=== PATIENT | male | born 1975 | race Caucasian/White ===

== ENCOUNTER 2020-05-08 12:17 | Emergency (ER) | payer OTHER ==
[~2020-05-08 12:17] MED LIST: DAYPRO600 M1 PO; NORFLEX100 MG PO; Vicodin 5/500 505 MG PO
[2020-05-08 13:06] VITALS: BP 112/70
[2020-05-08] MEDS ORDERED: NORCO 5-325 TA1 EACH PO (13:45)
[2020-05-08] MEDS ORDERED: IBUPROFEN600 MG PO (13:45)
== END 2020-05-08 14:10 | disposition home or self-care (01) ==
LOC: ED 12:17
DX: T22.10XA Burn of first degree of shoulder and upper limb, except wrist and hand, unspecified site, initial encounter (principal); X08.8XXA Exposure to other specified smoke, fire and flames, initial encounter; Y93.89 Activity, other specified; Y92.89 Other specified places as the place of occurrence of the external cause; Y99.8 Other external cause status

== ENCOUNTER 2020-09-29 13:47 | Emergency (ER) | payer OTHER ==
[~2020-09-29] VITALS: Ht 187.9 cm; Wt 115.7 kg
[~2020-09-29 13:47] MED LIST changes: +IBUPROFEN600 MG PO; +NORCO 5-325 TA1 EACH PO
[2020-09-29 16:28] VITALS: BP 103/70
[2020-09-29] MEDS ORDERED: PERCOCET 5-3251 EACH PO (17:25)
== END 2020-09-29 17:45 | disposition home or self-care (01) ==
LOC: ED 13:47
DX: S22.31XA Fracture of one rib, right side, initial encounter for closed fracture (principal); M79.601 Pain in right arm; Z88.6 Allergy status to analgesic agent; W20.8XXA Other cause of strike by thrown, projected or falling object, initial encounter; Y93.89 Activity, other specified; Y92.89 Other specified places as the place of occurrence of the external cause; Y99.8 Other external cause status

== ENCOUNTER → 2020-11-25 | Outpatient (CLI) | payer OTHER, BC ==
[~2020-11-25] MED LIST changes: +PERCOCET 5-3251 EACH PO
== END | disposition home or self-care (01) ==
LOC: RAD 11:18
PROVIDERS: ATTEND Family Medicine
DX: S22.41XD Multiple fractures of ribs, right side, subsequent encounter for fracture with routine healing (principal); X58.XXXD Exposure to other specified factors, subsequent encounter

== ENCOUNTER → 2021-04-29 | Day surgery (SDC) | payer BC ==
[2021-04-26 13:47] LABS: BUN 16 mg/dl (7-24); CHLORIDE 108 mmol/L (98-107); CREATININE 1.03 mg/dL (0.70-1.30); POTASSIUM 3.6 mmol/L (3.5-5.1); SODIUM 139 mmol/L (136-145)
[~2021-04-29] VITALS: Ht 185.4 cm; Wt 113.4 kg
[2021-04-29 07:00] VITALS: BP 110/74
[2021-04-29 08:12] VITALS: BP 111/78
[2021-04-29 08:27] VITALS: BP 108/73
[2021-04-29 08:37] VITALS: BP 110/83
[2021-04-29 10:02] VITALS: BP 110/63
== END | disposition home or self-care (01) ==
LOC: SDC 04-26 11:00
PROVIDERS: ATTEND Orthopaedic Surgery
DX: G56.01 Carpal tunnel syndrome, right upper limb (principal); F41.9 Anxiety disorder, unspecified; E78.00 Pure hypercholesterolemia, unspecified; F32.9 Major depressive disorder, single episode, unspecified; Z87.891 Personal history of nicotine dependence; J45.909 Unspecified asthma, uncomplicated; Z20.822 Contact with and (suspected) exposure to COVID-19; Z79.899 Other long term (current) drug therapy

== ENCOUNTER 2021-11-09 12:05 | Emergency (ER) | payer OTHER ==
[~2021-11-09] VITALS: Wt 120.2 kg
[2021-11-09 12:31] VITALS: BP 112/75
== END 2021-11-09 15:04 | disposition home or self-care (01) ==
LOC: ED 12:05
DX: S06.0X0A Concussion without loss of consciousness, initial encounter (principal); Z88.8 Allergy status to other drugs, medicaments and biological substances; W22.8XXA Striking against or struck by other objects, initial encounter; Y93.89 Activity, other specified; Y92.89 Other specified places as the place of occurrence of the external cause; Y99.8 Other external cause status

== ENCOUNTER 2022-12-16 19:40 | Emergency (ER) | payer OTHER ==
[~2022-12-16] VITALS: Ht 185.4 cm; Wt 124.7 kg
[2022-12-16] MEDS ORDERED: CELEXA20 MG PO (19:50)
[2022-12-16 20:15] LABS: BASO % 0.3 % (0.0-1.0); EOS # 0.1 10*3/uL (0.0-0.4); EOS % 0.8 % (1.0-4.0); HEMATOCRIT 42.7 % (42.0-52.0); LYMPH # 2.3 10*3/uL (1.3-4.4); LYMPH % 35.1 % (27.0-41.0); MEAN CELL VOLUME 87.3 fl (80.0-94.0); MEAN CORPUSCULAR HGB 29.9 pg (27.0-31.0); MEAN CORPUSCULAR HGB CONC 34.2 g/dl (33.0-37.0); MEAN PLATELET VOLUME 8.5 fl (9.6-12.3); MONO # 0.8 10*3/uL (0.1-1.0); MONO % 11.6 % (3.0-9.0); NEUT # 3.4 10*3/uL (2.3-7.9); PLATELET COUNT AUTOMATED 274 10*3/uL (130-400); RED BLOOD COUNT 4.89 10*6/uL (4.50-5.90); RED CELL DISTRI WIDTH 12.7 % (0-14.5); WHITE BLOOD COUNT 6.5 10*3/uL (4.8-10.8)
[2022-12-16 20:32] LABS: ALKALINE PHOSPHATASE 73 U/L (46-116); BUN 12 mg/dl (9-23); CHLORIDE 105 mmol/L (98-107); LIPASE 31 U/L (12-53); POTASSIUM 3.4 mmol/L (3.4-5.1); SGPT/ALT 59 U/L (10-49)
[2022-12-16 23:19] VITALS: BP 142/86
[2022-12-17] MEDS ORDERED: DICYCLOMINE HYD20 MG PO (01:23)
== END 2022-12-17 01:37 | disposition home or self-care (01) ==
LOC: ED 19:40
PROVIDERS: Physician Assistant
DX: K52.9 Noninfective gastroenteritis and colitis, unspecified (principal); R11.2 Nausea with vomiting, unspecified; J45.909 Unspecified asthma, uncomplicated; F32.A Depression, unspecified; Z88.8 Allergy status to other drugs, medicaments and biological substances; Z98.890 Other specified postprocedural states

== ENCOUNTER 2023-04-09 13:58 | Emergency (ER) | payer OTHER ==
[~2023-04-09] VITALS: Ht 182.8 cm; Wt 108.9 kg
[~2023-04-09 13:58] MED LIST changes: +CELEXA20 MG PO; +DICYCLOMINE HYD20 MG PO
[2023-04-09 14:13] VITALS: BP 117/90
[2023-04-09] MEDS ORDERED: CEPHALEXIN500 M1 PO (14:23)
== END 2023-04-09 16:00 | disposition home or self-care (01) ==
LOC: ED 13:58
DX: S81.811A Laceration without foreign body, right lower leg, initial encounter (principal); J45.909 Unspecified asthma, uncomplicated; F32.A Depression, unspecified; Z88.8 Allergy status to other drugs, medicaments and biological substances; Z98.890 Other specified postprocedural states; W26.9XXA Contact with unspecified sharp object(s), initial encounter; Y93.89 Activity, other specified; Y92.89 Other specified places as the place of occurrence of the external cause; Y99.8 Other external cause status

== ENCOUNTER → 2023-07-11 | Outpatient (CLI) | payer OTHER ==
[~2023-07-11] MED LIST changes: +CEPHALEXIN500 M1 PO
== END | disposition home or self-care (01) ==
LOC: RAD 15:18
PROVIDERS: ATTEND Family Medicine
DX: S46.911A Strain of unspecified muscle, fascia and tendon at shoulder and upper arm level, right arm, initial encounter (principal); X58.XXXA Exposure to other specified factors, initial encounter; Y93.89 Activity, other specified; Y92.89 Other specified places as the place of occurrence of the external cause; Y99.8 Other external cause status

== ENCOUNTER → 2024-04-23 | Outpatient (CLI) | payer OTHER | END | disposition home or self-care (01) | LOC: RAD 15:53 | PROVIDERS: ATTEND Family Medicine | DX: M79.642 Pain in left hand (principal); M25.532 Pain in left wrist ==

== ENCOUNTER → 2024-05-21 | Outpatient (CLI) | payer OTHER | END | disposition home or self-care (01) | LOC: MRI 13:00 | PROVIDERS: ATTEND Family Medicine | DX: S63.92XA Sprain of unspecified part of left wrist and hand, initial encounter (principal); S63.502A Unspecified sprain of left wrist, initial encounter; M65.88 Other synovitis and tenosynovitis, other site; X58.XXXA Exposure to other specified factors, initial encounter; Y93.89 Activity, other specified; Y92.89 Other specified places as the place of occurrence of the external cause; Y99.8 Other external cause status ==

== ENCOUNTER → 2024-12-16 | Outpatient (CLI) | payer OTHER | END | disposition home or self-care (01) | LOC: MRI 13:42 | PROVIDERS: ATTEND Family Medicine | DX: S46.011D Strain of muscle(s) and tendon(s) of the rotator cuff of right shoulder, subsequent encounter (principal); M19.011 Primary osteoarthritis, right shoulder; R60.0 Localized edema; X58.XXXD Exposure to other specified factors, subsequent encounter ==